=== PATIENT | female | born 1970 | race Caucasian/White ===

== ENCOUNTER → 2018-06-15 | Outpatient (REF) ==
--- NOTE | 2018-06-15 15:26 | REP ---
AP AND LATERAL CERVICAL SPINE, FOUR VIEWS: HISTORY: Degenerative disc disease. The cervical spine is visualized from C1 to the C5-6 level in the lateral radiograph. There is no acute fracture or subluxation. The C4-5 and C5-6 intervertebral discs are decreased in height consistent with disc degeneration. Osteophytes are present on C4 through 6. IMPRESSION: Degenerative change as described above. Electronically Signed by Kavon Ahumada MD 06/15/2018 03:30 P
--- NOTE | 2018-06-15 15:44 | REP ---
BILATERAL HIPS, AP PELVIS, FIVE VIEWS: HISTORY: Degenerative joint disease. RIGHT HIP: There is no acute fracture or dislocation. The joint space is normal in appearance. IMPRESSION: There is no acute fracture or dislocation. LEFT HIP: There is no acute fracture or dislocation. The joint space is normal in appearance. IMPRESSION: There is no acute fracture or dislocation. Electronically Signed by Kavon Ahumada MD 06/15/2018 03:51 P
== END ==
LOC: M SMT 14:42
PROVIDERS: ATTEND Internal Medicine
DX: Z02.89 Encounter for other administrative examinations (principal)